=== PATIENT | male | born 1980 | race Two or more races ===

== ENCOUNTER 2017-08-04 17:36 | Emergency (ER) | payer OTHER ==
[~2017-08-04] VITALS: Ht 190.5 cm; Wt 79.4 kg
[2017-08-04 18:50] VITALS: BP 155/92
[2017-08-04] MEDS ORDERED: LORazepam 2MG/ML-1ML VIAL IM ONE (19:00)
[2017-08-04] MEDS ORDERED: MEPERIDINE HCL (50 MG/ML) 1 ML VIAL IM ONE (19:00)
[2017-08-04] MEDS ORDERED: BACLOFEN 10 MG TAB PO ONE (21:30)
[2017-08-04] MEDS ORDERED: BACLOFEN 10 MG TAB ONE (21:31)
== END 2017-08-04 21:52 | disposition home or self-care (01) ==
LOC: EDBD 17:36 → ER 17:36
DX: S42.002A Fracture of unspecified part of left clavicle, initial encounter for closed fracture (principal); M25.511 Pain in right shoulder; V86.56XA Driver of dirt bike or motor/cross bike injured in nontraffic accident, initial encounter; Y93.89 Activity, other specified; Y92.89 Other specified places as the place of occurrence of the external cause; Y99.8 Other external cause status
CPT/HCPCS: 29105; 71045; 73000; 96372; 99284; J2060; J2175

== ENCOUNTER 2018-06-08 19:03 | Emergency (ER) | payer MEDICAID ==
[~2018-06-08] VITALS: Ht 190.5 cm; Wt 81.6 kg
[2018-06-08] MEDS ORDERED: HYDROcodone-ACET 5/325MG TAB PO ONE (19:45)
[2018-06-08] MEDS ORDERED: LIDOCAINE 2% (LOCAL ANESTH.) PF 5ml SDV ONE (21:26)
[2018-06-08] MEDS ORDERED: LIDOCAINE 1% HCL (LOCAL ANESTH.) INJ 20ML MDV ONE (21:29)
[2018-06-08] MEDS ORDERED: HYDROcodone-ACET 10/325MG TAB PO ONE (21:30)
[2018-06-08] MEDS ORDERED: cefTRIAXone SOD 1,000 MG VL IM ONE (21:30)
[2018-06-08] MEDS ORDERED: BACITRACIN INJ 50000 UNIT VIAL TOP ONE (21:30)
[2018-06-08] MEDS ORDERED: LIDOCAINE 1% HCL (LOCAL ANESTH.) INJ 20ML MDV IJ ONE (22:00)
[2018-06-08] MEDS ORDERED: LIDOCAINE 2%HCL (LOCAL ANESTH.) INJ 10ml MDV IJ ONE (22:00)
[2018-06-08 22:33] VITALS: BP 142/89
== END 2018-06-08 23:22 | disposition home or self-care (01) ==
LOC: ER 19:06
DX: S61.212A Laceration without foreign body of right middle finger without damage to nail, initial encounter (principal); W22.8XXA Striking against or struck by other objects, initial encounter; Y93.89 Activity, other specified; Y92.89 Other specified places as the place of occurrence of the external cause; Y99.8 Other external cause status
CPT/HCPCS: 12002; 73130; 96372; 99283; J0696; J2001

== ENCOUNTER 2018-06-13 13:10 | Emergency (ER) | payer MEDICAID ==
[~2018-06-13] VITALS: Ht 190.5 cm; Wt 77.1 kg
[2018-06-13 13:36] VITALS: BP 146/85
== END 2018-06-13 18:05 | disposition left against medical advice (07) ==
LOC: ER 13:10
DX: Z48.01 Encounter for change or removal of surgical wound dressing (principal); Z53.21 Procedure and treatment not carried out due to patient leaving prior to being seen by health care provider